=== PATIENT | male | born 1955 | race African-American/Black ===

== ENCOUNTER 2017-01-31 07:07 | Day surgery (SDC) | payer BC ==
[~2017-01-31] VITALS: Ht 177.8 cm; Wt 96.6 kg
[~2017-01-31 07:07] MED LIST: ASPIRIN81 MG PO; LOSARTAN POT50 MG PO; METFORMIN500 MG PO; PRAVASTATIN20 MG PO; ULORIC40 MG PO
[2017-01-31 08:13] VITALS: BP 107/55
== END 2017-01-31 08:28 | disposition home or self-care (01) | DRG 951 ==
LOC: ENDO 07:07
PROVIDERS: ATTEND Surgery
PROC: 0DJD8ZZ Inspection of Lower Intestinal Tract, Via Natural or Artificial Opening Endoscopic (ICD-10-PCS; principal; 2017-01-31)
DX: Z12.11 Encounter for screening for malignant neoplasm of colon (principal); E11.9 Type 2 diabetes mellitus without complications; Z86.010 Personal history of colon polyps

== ENCOUNTER 2019-01-22 07:20 | Day surgery (SDC) | payer BC ==
[~2019-01-22] VITALS: Ht 176.5 cm; Wt 96.2 kg
[2019-01-22] MEDS ORDERED: MOTRIN800 MG PO (09:39)
[2019-01-22 09:55] VITALS: BP 100/60
== END 2019-01-22 10:20 | disposition home or self-care (01) | DRG 572 ==
LOC: ORM 07:20
PROVIDERS: ATTEND Surgery
PROC: 0JB60ZZ Excision of Chest Subcutaneous Tissue and Fascia, Open Approach (ICD-10-PCS; principal; 2019-01-22)
DX: D17.9 Benign lipomatous neoplasm, unspecified (principal); E11.9 Type 2 diabetes mellitus without complications